=== PATIENT | female | born 1950 | race Caucasian/White ===

== ENCOUNTER 2016-06-19 08:17 | Emergency (ER) | payer OTHER ==
[~2016-06-19] VITALS: Ht 147.3 cm; Wt 70.3 kg
[2016-06-19 08:55] LABS: HEMATOCRIT 39.1 % (36.0-46.0); MCH 24.6 PG (29.0-34.0); MCHC 31.5 G/DL (30.0-36.0); MCV 78.2 FL (83-99); MEAN PLAT.VOLUME 9.9 uM^3 (9.5-12.4); PLATELET COUNT 318 K/uL (156-360); RBC DIS.WIDTH-CV 14.7 % (11.8-14.6); RBC DIS.WIDTH-SD 40.9 % (39-53); WHITE BLOOD COUNT 5.9 K/uL (4.1-10.2)
[2016-06-19 09:06] LABS: CHLORIDE 108 mEq/L (99-109); POTASSIUM 4.3 mEq/L (3.7-5.4); SODIUM 143 mEq/L (136-147)
[2016-06-19 09:08] LABS: GLUCOSE 90 mg/dL (70-99)
[2016-06-19 09:09] LABS: ANION GAP 9 MEQ/L (2-14)
[2016-06-19 09:11] LABS: GFR ESTIMATE (CALCULATED) > 59 mL/min/
[2016-06-19 09:12] LABS: UREA NITROGEN (BUN) 18 mg/dL (9-23)
[2016-06-19 09:18] LABS: TROP-I INTERPRETATION NEGATIVE; TROPONIN-I < 0.01 ng/mL (0.0-0.30)
[2016-06-19 11:57] LABS: D-DIMER ELISA 0.63 mg/L FEU (< 0.57)
[2016-06-19 12:11] LABS: TROP-I INTERPRETATION NEGATIVE; TROPONIN-I < 0.01 ng/mL (0.0-0.30)
[2016-06-19 13:45] VITALS: BP 130/68
== END 2016-06-19 15:47 | disposition home or self-care (01) ==
LOC: EME 08:17
PROVIDERS: Emergency Medicine
DX: R07.89 Other chest pain (principal); I10 Essential (primary) hypertension; Z98.84 Bariatric surgery status
CPT/HCPCS: 71020; 71275; 80048; 84484; 85027; 85379; 93005; 99281; 99285; J7030

== ENCOUNTER → 2016-12-17 | Day surgery (SDC) | payer OTHER ==
[~2016-12-17] VITALS: Ht 149.9 cm; Wt 68.2 kg
== END | disposition home or self-care (01) ==
LOC: PAIN 10:26 → SDC 11:15
DX: M47.816 Spondylosis without myelopathy or radiculopathy, lumbar region (principal); M54.5 Low back pain; G89.29 Other chronic pain; M43.16 Spondylolisthesis, lumbar region; M51.36 Other intervertebral disc degeneration, lumbar region; M25.78 Osteophyte, vertebrae; M48.061 Spinal stenosis, lumbar region without neurogenic claudication; M21.70 Unequal limb length (acquired), unspecified site; I10 Essential (primary) hypertension; R01.1 Cardiac murmur, unspecified; M17.0 Bilateral primary osteoarthritis of knee; Z98.84 Bariatric surgery status
CPT/HCPCS: J1030; J2250; J3010; S0020

== ENCOUNTER 2017-03-24 08:55 | Day surgery (SDC) | payer OTHER ==
[~2017-03-24] VITALS: Ht 149.9 cm; Wt 68.0 kg
== END 2017-03-24 10:35 | disposition home or self-care (01) ==
LOC: PAIN 08:55 → SDC 09:45 → PAIN 09:45
PROC: 015B3ZZ Destruction of Lumbar Nerve, Percutaneous Approach (ICD-10-PCS; principal; 2017-03-24)
DX: M47.816 Spondylosis without myelopathy or radiculopathy, lumbar region (principal); M48.00 Spinal stenosis, site unspecified; M51.36 Other intervertebral disc degeneration, lumbar region; M43.16 Spondylolisthesis, lumbar region; I10 Essential (primary) hypertension; R01.1 Cardiac murmur, unspecified; M17.0 Bilateral primary osteoarthritis of knee; Z88.8 Allergy status to other drugs, medicaments and biological substances
CPT/HCPCS: J1030; J2250; J3010; S0020

== ENCOUNTER 2017-03-31 08:41 | Day surgery (SDC) | payer OTHER, MEDICARE ==
[~2017-03-31] VITALS: Ht 149.9 cm; Wt 68.0 kg
== END 2017-03-31 10:30 | disposition home or self-care (01) ==
LOC: PAIN 08:41 → SDC 09:45 → PAIN 09:45
DX: M47.816 Spondylosis without myelopathy or radiculopathy, lumbar region (principal); M48.061 Spinal stenosis, lumbar region without neurogenic claudication; M51.36 Other intervertebral disc degeneration, lumbar region; F41.1 Generalized anxiety disorder; I10 Essential (primary) hypertension; E11.9 Type 2 diabetes mellitus without complications; Z98.84 Bariatric surgery status
CPT/HCPCS: J1030; J2250; J3010; S0020